=== PATIENT | female | born 1990 | race Caucasian/White ===

== ENCOUNTER 2016-08-10 22:02 | Emergency (ER) | payer OTHER | END 2016-08-11 00:14 | disposition home or self-care (01) | LOC: D.ER 22:02 | DX: S93.402A Sprain of unspecified ligament of left ankle, initial encounter (principal); W19.XXXA Unspecified fall, initial encounter ==

== ENCOUNTER 2016-09-29 19:34 | Emergency (ER) | payer OTHER ==
[2016-09-29 22:19] LABS: COLOR DK YELLOW (YELLOW)
[2016-09-29 22:20] LABS: APPEARANCE CLOUDY (CLEAR); BILIRUBIN NEGATIVE (NEGATIVE); GLUCOSE NEGATIVE (NEGATIVE); KETONE NEGATIVE (NEGATIVE); LEUKOCYTE ESTERASE NEGATIVE (NEGATIVE); NITRITE NEGATIVE (NEGATIVE); PROTEIN 1+ mg/dL (NEGATIVE); UROBILINOGEN NORMAL (NORMAL)
[2016-09-29 22:22] LABS: EPITHELIAL CELLS 0-5 /hpf (0-5); RED CELLS - URINE 25-50 /hpf (0-5)
[2016-09-29 22:23] LABS: BACTERIA FEW /hpf (NONE SEEN)
[2016-09-29 22:24] LABS: CALCIUM OXALATE CRYSTALS 25-50 /hpf (NONE SEEN)
== END 2016-09-29 22:57 | disposition home or self-care (01) ==
LOC: D.ER 19:34
PROVIDERS: Emergency Medicine Emergency Medical Services
DX: R10.9 Unspecified abdominal pain (principal); F17.200 Nicotine dependence, unspecified, uncomplicated